=== PATIENT | female | born 1975 | race Caucasian/White ===

== ENCOUNTER → 2018-01-13 | Outpatient (CLI) | payer OTHER ==
[~2018-01-13] MED LIST: DULO60CA7 PO; ESTRADIOL TP; THYR240T PO
[2018-01-13 13:43] LABS: CULTURE INDICATED? NO; MICROSCOPIC NOT IND
== END | disposition home or self-care (01) ==
LOC: STAR 12:56
PROVIDERS: ATTEND Specialist
DX: Z01.818 Encounter for other preprocedural examination (principal); J34.2 Deviated nasal septum; J34.9 Unspecified disorder of nose and nasal sinuses
CPT/HCPCS: 81003

== ENCOUNTER 2018-01-18 07:20 | Day surgery (SDC) | payer OTHER ==
[~2018-01-18] VITALS: Ht 165.1 cm; Wt 85.4 kg
[2018-01-18] MEDS ORDERED: LACTATED RINGERS 1,000 ML IV SCH (07:44)
[2018-01-18] MEDS ORDERED: LIDOCAINE-MPF 1%, 2ML INFIL ONE (08:00)
[2018-01-18] MEDS ORDERED: GABAPENTIN 300 MG CAPSULE PO STA (08:06)
[2018-01-18] MEDS ORDERED: SCOPOLAMINE PATCH, 1.5MG PATCH.TD72 TD STA (08:06)
[2018-01-18] MEDS ORDERED: ACETAMINOPHEN 500 MG TABLET PO STA (08:06)
[2018-01-18] MEDS ORDERED: FENTANYL PF 250 MCG/5ML ONE (08:10)
[2018-01-18] MEDS ORDERED: MIDAZOLAM 1 MG/ML, 2ML ONE (08:10)
[2018-01-18] MEDS ORDERED: LIDOCAINE-MPF 2% ,5ML ONE (08:11)
[2018-01-18] MEDS ORDERED: PROPOFOL 10 MG/ML, 20ML ONE (08:11)
[2018-01-18] MEDS ORDERED: ROCURONIUM 10MG/ML,5ML ONE (08:12)
[2018-01-18] MEDS ORDERED: CEFAZOLIN 1,000 MG ONE ×2 (08:13)
[2018-01-18] MEDS ORDERED: SODIUM CHLORIDE 0.9% PF 10ML ONE (08:13)
[2018-01-18] MEDS ORDERED: DEXAMETHASONE 4 MG/ML, 1ML ONE ×2 (09:02)
[2018-01-18] MEDS ORDERED: ONDANSETRON 2MG/ML, 2ML ONE ×2 (09:02)
[2018-01-18] MEDS ORDERED: HYDROmorphone 2 MG/ML, 1ML ONE ×2 (09:50→13:51)
[2018-01-18] MEDS ORDERED: COCAINE TOPICAL SOLN 4%, 4ML ONE (09:51)
[2018-01-18] MEDS ORDERED: LIDOCAINE 1%-EPI 1:100K, 30ML ONE (09:51)
[2018-01-18] MEDS ORDERED: NEOSPORIN OINT. PKT 1 PACKET ONE ×2 (09:51→12:22)
[2018-01-18] MEDS ORDERED: OXYMETAZOLINE NASAL SPRAY 0.05%, 15ML ONE (09:51)
[2018-01-18] MEDS ORDERED: THROMBIN 5,000 UNIT VIAL TP ONE (09:51)
[2018-01-18] MEDS ORDERED: LORazepam 2 MG/ML, 1ML IVPush PRN (11:00)
[2018-01-18] MEDS ORDERED: OXYcodone 5 MG/5 ML ORAL.SOL UDC PO PRN (11:00)
[2018-01-18] MEDS ORDERED: HALOPERIDOL 5 MG/ML IV PRN (11:00)
[2018-01-18] MEDS ORDERED: MEPERIDINE/PF 25MG/0.5ML IVPush PRN (11:00)
[2018-01-18] MEDS ORDERED: PROMETHAZINE 25 MG/ML, 1ML IV PRN (11:00)
[2018-01-18] MEDS ORDERED: hydrALAzine 20 MG/ML, 1ML IV PRN (11:00)
[2018-01-18] MEDS ORDERED: HYDROmorphone 1 MG/ML, 1ML IV PRN (11:00)
[2018-01-18] MEDS ORDERED: LABETALOL 5MG/ML, 20ML IV PRN (11:00)
[2018-01-18] MEDS ORDERED: GLYCOPYRROLATE 0.4 MG/2 ML, 2ML ONE (12:17)
[2018-01-18] MEDS ORDERED: NEOSTIGMINE 1 MG/ML, 10ML ONE (12:17)
[2018-01-18] MEDS ORDERED: OXYcodone 5 MG/5 ML ORAL.SOL UDC ONE (12:43)
[2018-01-18] MEDS ORDERED: FENTANYL PF 100 MCG/2ML ONE (12:43)
[2018-01-18] MEDS: FENTANYL PF 100 MCG/2ML IV PRN ×2 (12:49→13:08)
[2018-01-18] MEDS ORDERED: HYDROmorphone 2 MG/ML, 1ML IVPush PRN (14:00)
== END 2018-01-18 16:15 | disposition home or self-care (01) ==
LOC: OUT 07:20
PROVIDERS: ATTEND Specialist
DX: J34.2 Deviated nasal septum (principal); J34.3 Hypertrophy of nasal turbinates; J34.89 Other specified disorders of nose and nasal sinuses; E03.9 Hypothyroidism, unspecified; Z88.6 Allergy status to analgesic agent
CPT/HCPCS: 30465; 30520; 30802; C1776; J0690; J1100; J1170; J2250; J2405; J2704; J2710; J3010; J3490; J7120